=== PATIENT | male | born 1995 | race Hispanic/Latino ===

== ENCOUNTER 2023-12-15 16:14 | Emergency (ER) | payer SELFPAY ==
[2023-12-15] MEDS ORDERED: Tetracaine 0.5% PF 4 ML BOT ONE (16:34)
[2023-12-15] MEDS ORDERED: Fluorescein Opthalmic Strip ONE (16:34)
== END 2023-12-15 16:50 | disposition home or self-care (01) ==
LOC: MADERS 16:14
DX: T15.91XA Foreign body on external eye, part unspecified, right eye, initial encounter (principal); Z75.8 Other problems related to medical facilities and other health care
CPT/HCPCS: 99283